=== PATIENT | male | born 1995 | race Two or more races ===

== ENCOUNTER 2016-09-07 02:13 | Emergency (ER) | payer OTHER ==
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
[~2016-09-07 02:13] MED LIST: ALBUTEROL17 GM INH; AMOXICILLIN875 MG PO; ASPIRIN; COUGHTAB200 MG PO; DOXYCYCLINE HY100 M1 PO; KEFLEX500 MG PO; LORTAB 5/500 TA1 TA1 PO; NAPROSYN250 M1 PO; NO MEDICATIONS; OMEGA-3100 MG; PHENERGAN DM1 ML PO; PHENERGAN PO; PREDNISONE50 MG PO; PROMETHAZINE W118 M2 PO; TAMIFLU75 M1 PO; TYLENOL #3 PO; ZITHROMAX PO
== END 2016-09-07 03:40 | disposition home or self-care (01) ==
LOC: SED 02:13
DX: S00.03XA Contusion of scalp, initial encounter (principal); K21.9 Gastro-esophageal reflux disease without esophagitis; K27.9 Peptic ulcer, site unspecified, unspecified as acute or chronic, without hemorrhage or perforation; F17.200 Nicotine dependence, unspecified, uncomplicated; W22.8XXA Striking against or struck by other objects, initial encounter; Y92.009 Unspecified place in unspecified non-institutional (private) residence as the place of occurrence of the external cause
CPT/HCPCS: 70450; 99284